=== PATIENT | male | born 1975 | race Caucasian/White ===

== ENCOUNTER 2020-09-01 21:24 | Emergency (ER) | payer MEDICARE, MEDICAID ==
[~2020-09-01] VITALS: Ht 177.8 cm; Wt 136.1 kg
[2020-09-01 22:18] LABS: ABSOLUTE BASOPHILS 0.2 thou/uL (0.0-0.2); ABSOLUTE LYMPHOCYTES 1.7 thou/uL (0.8-5.3); ABSOLUTE MONOCYTES 1.4 thou/uL (0.0-1.2); ABSOLUTE NEUTROPHILS 13.8 thou/uL (1.6-8.1); EOSINOPHILS 0.2 %; HEMATOCRIT 50.9 % (42.0-52.0); HEMOGLOBIN 16.6 gm/dL (14.0-18.0); LYMPHOCYTES 9.7 %; MCH 26.9 pg (26.0-34.0); MCHC 32.5 g/dL (28.0-37.0); MONOCYTES 8.2 %; MPV 8.3 fl. (7.2-11.1); NUCLEATED RBCS 0 /100WBC; PLATELET COUNT* 220 thou/uL (150-400); POLYS 80.9 %; RBC 6.14 mil/uL (4.50-6.00); RDW-CV 16.6 % (10.5-14.5)
[2020-09-01 22:39] LABS: POTASSIUM 4.3 mmol/L (3.5-5.1)
[2020-09-01 22:46] LABS: CALCIUM 9.3 mg/dL (8.5-10.1); CREATININE 1.3 mg/dL (0.6-1.3)
[2020-09-01 22:51] LABS: TOTAL PROTEIN 8.4 g/dL (6.4-8.2)
[2020-09-02 01:01] VITALS: BP 147/95
== END 2020-09-02 01:03 | disposition home or self-care (01) ==
LOC: M.ERS 21:24
PROVIDERS: Emergency Medicine Emergency Medical Services
DX: J95.831 Postprocedural hemorrhage of a respiratory system organ or structure following other procedure (principal)